=== PATIENT | male | born 1975 | race Caucasian/White ===

== ENCOUNTER 2020-10-14 13:58 | Outpatient (CLI) | payer MEDICAID ==
[2020-10-14] MEDS ORDERED: LIDOcaine 2% 5ml jelly ONE (14:51)
== END 2020-10-14 23:59 | disposition home or self-care (01) ==
LOC: WOUND CARE 13:58
PROVIDERS: ATTEND Nurse Practitioner Family
DX: T81.89XA Other complications of procedures, not elsewhere classified, initial encounter (principal); L98.492 Non-pressure chronic ulcer of skin of other sites with fat layer exposed; L97.122 Non-pressure chronic ulcer of left thigh with fat layer exposed; Y83.8 Other surgical procedures as the cause of abnormal reaction of the patient, or of later complication, without mention of misadventure at the time of the procedure; Y92.234 Operating room of hospital as the place of occurrence of the external cause
CPT/HCPCS: 82948; 87070; 87075; 87077; 87186; 97597

== ENCOUNTER 2020-10-21 13:31 | Outpatient (CLI) | payer MEDICAID ==
[2020-10-21] MEDS ORDERED: LIDOcaine 2% 5ml jelly ONE (14:05)
== END 2020-10-21 23:59 | disposition home or self-care (01) ==
LOC: WOUND CARE 13:31
PROVIDERS: ATTEND Nurse Practitioner Family
DX: T81.89XD Other complications of procedures, not elsewhere classified, subsequent encounter (principal); L98.492 Non-pressure chronic ulcer of skin of other sites with fat layer exposed; L97.122 Non-pressure chronic ulcer of left thigh with fat layer exposed; F17.290 Nicotine dependence, other tobacco product, uncomplicated; Z89.511 Acquired absence of right leg below knee; Y83.8 Other surgical procedures as the cause of abnormal reaction of the patient, or of later complication, without mention of misadventure at the time of the procedure
CPT/HCPCS: 82948; 97597

== ENCOUNTER 2020-11-04 12:40 | Outpatient (CLI) | payer MEDICAID ==
[2020-11-04] MEDS ORDERED: LIDOcaine 2% 5ml jelly ONE (13:13)
== END 2020-11-04 23:59 | disposition home or self-care (01) ==
LOC: WOUND CARE 12:40
PROVIDERS: ATTEND Nurse Practitioner
DX: T81.89XD Other complications of procedures, not elsewhere classified, subsequent encounter (principal); L98.492 Non-pressure chronic ulcer of skin of other sites with fat layer exposed; L97.122 Non-pressure chronic ulcer of left thigh with fat layer exposed; F17.290 Nicotine dependence, other tobacco product, uncomplicated; Z89.511 Acquired absence of right leg below knee; Y83.8 Other surgical procedures as the cause of abnormal reaction of the patient, or of later complication, without mention of misadventure at the time of the procedure
CPT/HCPCS: 82948; G0463

== ENCOUNTER 2020-11-11 12:54 | Outpatient (CLI) | payer MEDICAID ==
[2020-11-11] MEDS ORDERED: LIDOcaine 2% 5ml jelly ONE ×2 (13:28)
== END 2020-11-11 23:59 | disposition home or self-care (01) ==
LOC: WOUND CARE 12:54
PROVIDERS: ATTEND Nurse Practitioner Family
DX: T81.89XD Other complications of procedures, not elsewhere classified, subsequent encounter (principal); L98.492 Non-pressure chronic ulcer of skin of other sites with fat layer exposed; L97.122 Non-pressure chronic ulcer of left thigh with fat layer exposed; F17.290 Nicotine dependence, other tobacco product, uncomplicated; Z89.511 Acquired absence of right leg below knee; Y83.8 Other surgical procedures as the cause of abnormal reaction of the patient, or of later complication, without mention of misadventure at the time of the procedure
CPT/HCPCS: 97597

== ENCOUNTER 2020-11-18 12:39 | Outpatient (CLI) | payer MEDICAID | END 2020-11-18 23:59 | disposition home or self-care (01) | LOC: WOUND CARE 12:39 | PROVIDERS: ATTEND Nurse Practitioner Family | DX: T81.89XD Other complications of procedures, not elsewhere classified, subsequent encounter (principal); L98.492 Non-pressure chronic ulcer of skin of other sites with fat layer exposed; L97.122 Non-pressure chronic ulcer of left thigh with fat layer exposed; F17.290 Nicotine dependence, other tobacco product, uncomplicated; Z89.511 Acquired absence of right leg below knee; Y83.8 Other surgical procedures as the cause of abnormal reaction of the patient, or of later complication, without mention of misadventure at the time of the procedure | CPT/HCPCS: G0463 ==

== ENCOUNTER → 2021-01-13 | Outpatient (CLI) | payer MEDICAID ==
[~2021-01-13] MED LIST: LIDOcaine 2% 5ml jelly ONE
== END | disposition home or self-care (01) ==
LOC: EDSTATUS 11:00 → WOUND CARE 11:02
PROVIDERS: ATTEND Nurse Practitioner
DX: T81.89XD Other complications of procedures, not elsewhere classified, subsequent encounter (principal); L98.492 Non-pressure chronic ulcer of skin of other sites with fat layer exposed; L97.122 Non-pressure chronic ulcer of left thigh with fat layer exposed; F17.290 Nicotine dependence, other tobacco product, uncomplicated; Z89.511 Acquired absence of right leg below knee; Y83.8 Other surgical procedures as the cause of abnormal reaction of the patient, or of later complication, without mention of misadventure at the time of the procedure
CPT/HCPCS: 11043; 87070; 87075; 87077; 87186